=== PATIENT | female | born 1970 | race Caucasian/White ===

== ENCOUNTER 2016-11-24 12:52 | Emergency (ER) | payer SELFPAY ==
[~2016-11-24] VITALS: Ht 154.9 cm; Wt 75.0 kg
[~2016-11-24 12:52] MED LIST: AMOXICILLIN 8751 TAB PO; CIPRO 500MG TA500 MG PO; DARVOCET N; DARVOCET N 101 UDTAB PO; DILAUDID 4MG TAB4 MG PO; FIORICET 325 MG1 TA1 PO; FLEXERIL10 MG PO; HCTZ 25MG TAB25 MG PO; LIBRAX 5 MG-2.51 CA1 PO; NORCO 325 MG-51 TA1 PO; NORCO 325 MG-7.1 TA1 PO; PERCOCET 325 MG1 TA2 PO; PERCOCET 5/321 UDTAB PO; PERCOCET 650 MG1 TAB PO; PHENERGAN 25 TA25 MG PO; PHENERGAN W/CO120 M1 PO; PHENERGAN25 MG RC; PREDNISONE20 M1 PO; PROVENTIL0.09 MG/A1 IH; TOPAMAX 25MG25 MG PO; VENTOLIN0.09 MG IH
[2016-11-24 13:07] VITALS: PULSE 102; TEMP 98.2
== END 2016-11-24 13:52 | disposition home or self-care (01) ==
LOC: COL.ER 12:52
DX: S91.202A Unspecified open wound of left great toe with damage to nail, initial encounter (principal); X58.XXXA Exposure to other specified factors, initial encounter; I10 Essential (primary) hypertension

== ENCOUNTER 2018-07-20 15:40 | Emergency (ER) | payer SELFPAY ==
[~2018-07-20] VITALS: Ht 154.9 cm; Wt 81.8 kg
[2018-07-20 15:42] VITALS: TEMP 98.9
[2018-07-20 16:09] LABS: BASO % 0.2 % (0.0-2.0); EOS # 0.3 (0.0-0.7); EOS % 2.5 % (0-4.0); GRAN # 8.2 (1.4-6.5); GRAN % 67.5 % (42.2-75.2); HEMATOCRIT 44.6 % (37.0-47.0); HEMOGLOBIN 14.8 g/dl (12.5-16.0); LYMPH # 2.9 (1.2-3.4); LYMPH % 23.7 % (20.0-51.0); MEAN CELL VOLUME 91 fl (80.0-100.0); MEAN CORPUSCULAR HEMOGLOBIN 30 pg (27.0-31.0); MEAN CORPUSCULAR HGB CONC 33 g/dl (33.0-37.0); MEAN PLATELET VOLUME 11.5 fl (7.4-10.4); MONO # 0.7 (0.1-0.6); MONO % 5.6 % (1.7-9.3); PLATELET COUNT 250 K/mm3 (130-400); RED BLOOD COUNT 4.93 M/mm3 (4.10-5.30)
[2018-07-20 16:17] LABS: ALANINE AMINOTRANSFERASE 41 U/L (9-52); ALBUMIN 4.5 gm/dL (3.5-5.0); ALKALINE PHOSPHATASE 77 U/L (50-136); ANION GAP 14 mmol/L (7-16); AST,SGOT 27 U/L (15-37); BILIRUBIN,TOTAL 0.9 mg/dL (0.0-1.0); BLOOD UREA NITROGEN 9 mg/dL (7-17); CALCIUM 9.8 mg/dL (8.4-10.2); CARBON DIOXIDE 28 mmol/L (22-30); CHLORIDE 97 mmol/L (98-107); CREATININE, serum 0.79 mg/dL (0.52-1.25); GLUCOSE 101 mg/dL (74-106); LIPASE 90 U/L (23-300); POTASSIUM 3.6 mmol/L (3.4-5.0); SODIUM 139 mmol/L (137-145); TOTAL PROTEIN 8.2 gm/dL (6.4-8.2)
[2018-07-20 16:50] LABS: TROPONIN-I < 0.012 ng/mL (0.000-0.034)
[2018-07-20] MEDS ORDERED: NITROSTAT0.4 MG/TAB SL (18:51)
[2018-07-20] MEDS ORDERED: PRINZIDE 12.5 M1 TAB PO (20:41)
[2018-07-20 20:43] VITALS: BP 142/89; PULSE 95
== END 2018-07-20 20:43 | disposition home or self-care (01) ==
LOC: COL.ER 15:40
PROVIDERS: Emergency Medicine
DX: I10 Essential (primary) hypertension (principal); R07.89 Other chest pain; F17.210 Nicotine dependence, cigarettes, uncomplicated
CPT/HCPCS: J7030

== ENCOUNTER 2019-11-02 21:05 | Emergency (ER) | payer OTHER ==
[~2019-11-02] VITALS: Ht 157.5 cm; Wt 80.0 kg
[~2019-11-02 21:05] MED LIST changes: +NITROSTAT0.4 MG/TAB SL; +PRINZIDE 12.5 M1 TAB PO
[2019-11-02 21:10] VITALS: BP 197/91; TEMP 98.7
[2019-11-02 22:40] VITALS: PULSE 82
== END 2019-11-02 22:41 | disposition home or self-care (01) ==
LOC: COL.ER 21:05
DX: S00.411A Abrasion of right ear, initial encounter (principal); I10 Essential (primary) hypertension; F17.210 Nicotine dependence, cigarettes, uncomplicated; X58.XXXA Exposure to other specified factors, initial encounter

== ENCOUNTER → 2020-06-08 | Outpatient (CLI) | payer OTHER | LOC: COL.RAD 10:03 | DX: M22.41 Chondromalacia patellae, right knee (principal) ==

== ENCOUNTER → 2024-05-07 | Outpatient (CLI) | payer OTHER ==
[~2024-05-07] MED LIST changes: +PREDNISONE20 MG PO
== END ==
LOC: COL.RAD 09:41
DX: M51.36 Other intervertebral disc degeneration, lumbar region (principal); M17.12 Unilateral primary osteoarthritis, left knee